=== PATIENT | male | born 1965 | race Caucasian/White ===

== ENCOUNTER 2023-01-21 03:29 | Emergency (ER) | payer OTHER, MEDICAID, SELFPAY ==
[2023-01-21] VITALS (9 sets, daily range): BP systolic 118–211; BP diastolic 59–101; PULSE 60–86; RESP 16–19; TEMP 36.6–37; O2SAT 97–99; BMI 34.4
--- NOTE | 2023-01-21 03:49 | ED.EXTPRO ---
HPI - Extremity Problem General Chief complaint: Extremity Problem,Nontraumatic Stated complaint: pain in feet, blood pressure high Time Seen by Provider: 01/21/23 03:31 Source: patient Mode of arrival: Ambulatory History of Present Illness HPI Narrative: Patient is a 57-year-old male. History of high blood pressure. Was recently in [place] where he states he was ?recuperating? from abdominal surgeries. He has been several months down there. Apparently while he was there he was told that he was diabetic. He is now been back in the local area for several weeks. He is here because last evening he states that he was having pain all over his body specifically in his feet. He also took his blood pressure at home and it was elevated. He denies chest pain or shortness of breath. He has had a stroke in the past. He stated he became very anxious because of his high blood pressure which is what brought him into the emergency department. He has been taking all of his medications as directed. Related Data Allergies Allergy/AdvReac Type Severity Reaction Status Date / Time tramadol Allergy Unknown Verified 01/21/23 03:45 HYDROCODONE Allergy Mild Rash Uncoded 12/01/17 12:31 Review of Systems Review of Systems ROS Unobtainable: All systems reviewed & are unremarkable except as noted in HPI and below Patient History Medical History Stroke Surgical abdomen TBI (traumatic brain injury) Surgical History (Updated 01/21/23 @ 03:45 by Kaela Lindquist RN) H/O heart surgery Social History Smoking Status: Current some day smoker Smoking Status: Current some day smoker tobacco type: cigarettes and cigars alcohol intake frequency: holidays/special occasions only Exam Initial Vital Signs Initial Vital Signs: Vital Signs Pulse Oximetry 98 01/21/23 03:37 Const General: cooperative and No ill appearing HENMT Head: normal to inspection and normocephalic Resp Effort & Inspection: normal respiratory effort Auscultation: clear to auscultation bilaterally Cardio Rate: regular rate Rhythm: regular rhythm GI Inspection: normal to inspection Neuro General: patient alert, patient awake and moves all extremities Extrem General: capillary refill normal Course Orders Ordered: ED Orders 01/21/23 03:49 EKG-12 Lead Stat 01/21/23 03:55 Basic Metabolic Panel Stat Complete Blood Count AUTO DIFF Stat Troponin & CK Cardiac Panel Stat Vital Signs Vital signs: Vital Signs - 8 hr 01/21/23 03:41 01/21/23 03:37 01/21/23 03:38 Temperature 98.6 F Pulse Rate 82 85 Respiratory Rate 18 Blood Pressure 211/101 H Pulse Oximetry 97 98 99 Oxygen Delivery Method Room Air 01/21/23 03:42 01/21/23 03:42 01/21/23 04:00 Temperature Pulse Rate 86 67 Respiratory Rate 16 Blood Pressure 194/99 H Pulse Oximetry 99 Oxygen Delivery Method 01/21/23 04:01 01/21/23 04:01 01/21/23 04:30 Temperature Pulse Rate 69 Respiratory Rate 16 Blood Pressure 129/66 118/59 L Pulse Oximetry Oxygen Delivery Method 01/21/23 04:30 01/21/23 05:07 01/21/23 05:00 Temperature 97.8 F Pulse Rate 63 Respiratory Rate 17 Blood Pressure 128/66 Pulse Oximetry Oxygen Delivery Method 01/21/23 05:00 Temperature Pulse Rate 60 Respiratory Rate 19 Blood Pressure Pulse Oximetry Oxygen Delivery Method MDM - Extremity (Nontraumatic) Lab Data 01/21/23 03:55 01/21/23 03:55 Labs: Lab Results 01/21/23 01/21/23 Range/Units 03:55 03:55 WBC 11.0 (4.5-11.0) X10^3/uL RBC 4.54 (4.5-5.9) X10^6/uL Hgb 14.0 (13.5-17.5) g/dL Hct 41.0 (41-53) % MCV 90.3 (80-100) fL MCH 30.8 (26-34) PG MCHC 34.1 (30-36) % RDW 14.1 (11.6-14.8) % Plt Count 180 (150-400) X10^3/uL Neut % (Auto) 60.5 (50-75) % Lymph % (Auto) 30.0 (25-40) % [place] % (Auto) 7.5 (3-14) % Eos % (Auto) 1.5 L (2-4) % Baso % (Auto) 0.5 (0-2) % Neut # (Auto) 6600 (0214-1233) /uL Lymph # (Auto) 3300 (0199-9765) /uL [place] # (Auto) 800 (0-900) /uL Eos # (Auto) 200 (0-450) /uL Baso # (Auto) 100 (0-100) /uL Sodium 136 L (137-145) mmol/L Potassium 4.0 (3.4-5.1) mmol/L Chloride 103 (98-107) mmol/L Carbon Dioxide 24 (22-32) mmol/L BUN 15 (9-20) mg/dL Creatinine 0.75 (0.66-1.25) mg/dL Estimated GFR > 60 (>60) mL/min BUN/Creatinine Ratio 20.0 (6-22) Glucose 227 H (70-100) mg/dL Calcium 9.5 (8.4-10.2) mg/dL Total Creatine Kinase 97 (55-170) U/L CK-MB (CK-2) TNP CK-MB (CK-2) Rel Index TNP Troponin I < 0.012 (0.01-0.034) ng/mL ECG Data Interpretation: Sinus rhythm Ventricular rate is [address] T wave changes MDM Narrative Medical decision making narrative: Workup here in the emergency department is very reassuring. His blood pressure improved tremendously without specific intervention here in the ER. He states he feels much better. I have a very high suspicion that his presenting symptoms today have an anxiety component to them. Low suspicion for ACS, TIA, heart failure, kidney disease. Will discharge patient home with instructions to continue to take all of his medications as directed and also take his blood pressure at home. He is a follow-up with his primary doctor that beginning an next week and I advised he talk with his primary doctor about potentially changing any medications. He expressed understanding and agreement with plan. Discharge Plan Departure Patient Disposition: Home Clinical Impression: Hypertension Instructions: High Blood Pressure Activity Restrictions/Additional Instructions: Recommend that you continue to take all of your medications as directed and keep all of your scheduled medical appointments. Return to the emergency department for new or worsening symptoms. Stand Alone Forms: Patient Portal/API
[2023-01-21 04:07] LABS: Add Manual Diff / Slide Review NO; Basophils Absolute Auto 100 /uL (0-100); Basophils Percent Auto 0.5 % (0-2); Eosinophils Absolute Auto 200 /uL (0-450); Eosinophils Percent Auto 1.5 % (2-4); Lymphocytes Absolute Auto 3300 /uL (1100-4500); Mean Corpuscular HGB Conc 34.1 % (30-36); Mean Corpuscular Hemoglobin 30.8 PG (26-34); Mean Corpuscular Volume 90.3 fL (80-100); Monocytes Absolute Auto 800 /uL (0-900); Monocytes Percent Auto 7.5 % (3-14); Neutrophils Absolute Auto 6600 /uL (1500-7000); Neutrophils Percent Auto 60.5 % (50-75); Platelet Count 180 X10^3/uL (150-400); Red Blood Cell Count 4.54 X10^6/uL (4.5-5.9); Red Cell Distribution Width 14.1 % (11.6-14.8)
[2023-01-21 04:14] LABS: Blood Urea Nitrogen 15 mg/dL (9-20); Calcium 9.5 mg/dL (8.4-10.2); Carbon Dioxide 24 mmol/L (22-32); Chloride 103 mmol/L (98-107); Creatine Kinase 97 U/L (55-170); Estimated Glomerular Filt Rate > 60 mL/min (>60); Glucose 227 mg/dL (70-100); HEMOLYSIS < 15 (0-50); Sodium 136 mmol/L (137-145)
[2023-01-21 04:26] LABS: Troponin I < 0.012 ng/mL (0.01-0.034)
== END 2023-01-21 05:08 | disposition home or self-care (01) ==
PROVIDERS: Emergency Provider Emergency Medicine
DX: I10 Essential (primary) hypertension (principal); F17.200 Nicotine dependence, unspecified, uncomplicated
CPT/HCPCS: 36415; 80048; 82550; 84484; 85025; 93005; 93010; 99283

== ENCOUNTER → 2023-06-22 10:30 | Outpatient (CLI) | payer OTHER, MEDICAID, SELFPAY ==
[2023-06-22 11:31] LABS: Hematocrit 40.3 % (41-53); Hemoglobin 13.7 g/dL (13.5-17.5); Mean Corpuscular Hemoglobin 30.7 PG (26-34); Mean Corpuscular Volume 90.4 fL (80-100); Platelet Count 218 X10^3/uL (150-400); Red Blood Cell Count 4.46 X10^6/uL (4.5-5.9); White Blood Cell Count 10.1 X10^3/uL (4.5-11.0)
[2023-06-22 11:45] LABS: Alanine Aminotransferase 29 IU/L (<50); Albumin 4.4 g/dL (3.5-5.0); Albumin Globulin Ratio 1.4 (1.0-2.8); Alkaline Phosphatase 70 U/L (38-126); Aspartate Aminotransferase 25 IU/L (17-59); Bilirubin Total 0.5 mg/dL (0.2-1.3); Blood Urea Nitrogen 17 mg/dL (9-20); Calcium 9.8 mg/dL (8.4-10.2); Carbon Dioxide 24 mmol/L (22-32); Chloride 104 mmol/L (98-107); Creatine Kinase 165 U/L (55-170); Estimated Glomerular Filt Rate > 60 mL/min (>60); Globulin 3.1 g/dL (1.7-4.1); Glucose 89 mg/dL (70-100); HEMOLYSIS 39 (0-50); Potassium 4.2 mmol/L (3.4-5.1); Sodium 137 mmol/L (137-145); Total Protein 7.5 g/dL (6.3-8.2)
[2023-06-22 13:35] LABS: Appearance Urine UA CLEAR; Bilirubin Urine UA NEGATIVE (NEGATIVE); Color Urine UA ORANGE; Glucose Urine UA NEGATIVE (Negative); Ketones Urine UA TRACE (NEGATIVE); Leukocyte Esterase Urine UA NEGATIVE (NEGATIVE); Nitrite Urine UA NEGATIVE (Negative); Occult Blood Urine UA NEGATIVE (Negative); Protein Urine UA NEGATIVE (Negative); Specific Gravity Urine UA 1.025 (1.000-1.035)
[2023-06-22 13:42] LABS: Bacteria Urine None Seen; Culture Indicated Urine Cult Not Indicated; Mucus Urine 1+ (Negative); RBC Urine None Seen (0-5/HPF); Squamous Epithelial Cell Urine 1-5 /HPF (0-5/HPF); WBC Urine None Seen (0-5/HPF)
== END ==
PROVIDERS: PCP Family Medicine; Referring Provider Family Medicine; Visit Provider Family Medicine
DX: G72.0 Drug-induced myopathy (principal); I25.10 Atherosclerotic heart disease of native coronary artery without angina pectoris; T46.6X5A Adverse effect of antihyperlipidemic and antiarteriosclerotic drugs, initial encounter; M25.551 Pain in right hip; G89.29 Other chronic pain; Z00.00 Encounter for general adult medical examination without abnormal findings
CPT/HCPCS: 36415; 80053; 81001; 82550; 85027

== ENCOUNTER → 2023-09-01 15:55 | Outpatient (CLI) | payer OTHER, MEDICAID, SELFPAY ==
[2023-09-01 17:25] LABS: Influenza A - CEPHEID Flu A NEGATIVE (NEGATIVE); Influenza B - CEPHEID Flu B NEGATIVE (NEGATIVE); Respiratory Syncytial Virus POSITIVE (Negative)
[2023-09-01 17:27] LABS: COVID-19 CEPHEID 4-PLEX PCR Negative (Negative)
== END ==
PROVIDERS: PCP Family Medicine; Visit Provider Nurse Practitioner Family
DX: R05.1 Acute cough (principal)
CPT/HCPCS: 0241U

== ENCOUNTER → 2023-11-11 11:29 | Outpatient (CLI) | payer OTHER, MEDICAID, SELFPAY ==
[2023-11-11 12:22] LABS: Hematocrit 39.2 % (41-53); Hemoglobin 13.6 g/dL (13.5-17.5); Mean Corpuscular HGB Conc 34.6 % (30-36); Mean Corpuscular Hemoglobin 31.4 PG (26-34); Mean Corpuscular Volume 90.8 fL (80-100); Platelet Count 210 X10^3/uL (150-400); Red Blood Cell Count 4.32 X10^6/uL (4.5-5.9); Red Cell Distribution Width 14.5 % (11.6-14.8); White Blood Cell Count 10.4 X10^3/uL (4.5-11.0)
[2023-11-11 12:30] LABS: Hemoglobin A1C% w Est Avg Glu 5.7 % (4.0-6.0)
[2023-11-11 12:39] LABS: Alanine Aminotransferase 49 IU/L (<50); Albumin Globulin Ratio 1.4 (1.0-2.8); Alkaline Phosphatase 84 U/L (38-126); Aspartate Aminotransferase 35 IU/L (17-59); BUN Creatinine Ratio 17.8 (6-22); Bilirubin Total 0.7 mg/dL (0.2-1.3); Blood Urea Nitrogen 16 mg/dL (9-20); Calcium 9.5 mg/dL (8.4-10.2); Carbon Dioxide 26 mmol/L (22-32); Chloride 107 mmol/L (98-107); Cholesterol 110 mg/dL (140-199); Estimated Glomerular Filt Rate > 60 mL/min (>60); Globulin 2.9 g/dL (1.7-4.1); Glucose 102 mg/dL (80-110); HDL Cholesterol 42 mg/dL (40-60); HEMOLYSIS < 15 (0-50); LDL Cholesterol Calculated 27 mg/dL (<100); Potassium 4.3 mmol/L (3.4-5.1); Sodium 139 mmol/L (137-145); Total Protein 6.9 g/dL (6.3-8.2); Triglycerides 204 mg/dL (35-150)
[2023-11-11 13:08] LABS: Prostate Specific Antigen Scrn 0.958 ng/mL (0.1-4.0)
[2023-11-11 18:46] LABS: HIV 1 & 2 Ab/Ag 4th Gen Combo NEGATIVE (NEGATIVE); Hep C Virus Ab w/Reflex Quant NEGATIVE s/c (NEGATIVE)
[2023-11-11 20:28] LABS: Creatinine Urine Random 529.1 mg/dL; Microalbumi Creatinin Ratio Ur 215.4 ug/mg CR (<30); Microalbumin Urine Random > 114.0 mg/dL (0-1.6)
== END ==
PROVIDERS: PCP Family Medicine; Referring Provider Family Medicine; Visit Provider Family Medicine
DX: I10 Essential (primary) hypertension (principal); I25.10 Atherosclerotic heart disease of native coronary artery without angina pectoris; E66.9 Obesity, unspecified; Z86.73 Personal history of transient ischemic attack (TIA), and cerebral infarction without residual deficits; Z13.9 Encounter for screening, unspecified; Z13.1 Encounter for screening for diabetes mellitus; Z11.59 Encounter for screening for other viral diseases; Z12.5 Encounter for screening for malignant neoplasm of prostate; Z11.4 Encounter for screening for human immunodeficiency virus [HIV]; Z13.220 Encounter for screening for lipoid disorders
CPT/HCPCS: 36415; 80053; 80061; 82043; 82570; 83036; 85027; 86803; 87389; G0103

== ENCOUNTER → 2023-12-28 10:54 | Outpatient (CLI) | payer OTHER, MEDICAID, SELFPAY ==
--- NOTE | 2023-12-28 10:55 | DI.RAD.S_ITS ---
PROCEDURE: XR SHOULDER LT MIN 2V INDICATIONS: Left Shoulder Pain TECHNIQUE: 3 views of the shoulder were acquired. COMPARISON: None. FINDINGS: Bones: No fractures or dislocations. Moderate degenerative changes are present at the acromioclavicular joint. No suspicious bony lesions. Visualized ribs appear intact. Soft tissues: No suspicious soft tissue calcifications. IMPRESSION: No acute bony abnormality. Degenerative change. Dictated by: Radha Lagos M.D. on 12/28/2023 at 15:26 Approved by: Radha Lagos M.D. on 12/28/2023 at 15:27
== END ==
LOC: RAD 10:55
PROVIDERS: PCP Family Medicine; Referring Provider Family Medicine; Visit Provider Family Medicine
DX: M25.512 Pain in left shoulder (principal)
CPT/HCPCS: 73030

== ENCOUNTER → 2024-07-25 13:55 | Outpatient (CLI) | payer OTHER, MEDICAID, SELFPAY ==
--- NOTE | 2024-07-25 13:56 | DI.RAD.S_ITS ---
PROCEDURE: XR HIP W PEL IF DONE LT 2V INDICATIONS: Left hip pain s/p fall 6 weeks ago TECHNIQUE: AP pelvis with lateral view(s) of the left hip(s). COMPARISON: None. FINDINGS: No acute fracture or dislocation. Mild bilateral hip osteoarthritis, greater on the right side, with superimposed cam morphology of the hips. Mild bilateral sacroiliac joint osteoarthritis. The pubic symphysis is preserved. IMPRESSION: No acute fracture or dislocation of the pelvis or left hip. Dictated by: Preston Hawley M.D. on 07/25/2024 at 14:48 Approved by: Preston Hawley M.D. on 07/25/2024 at 14:50
[2024-07-25 15:13] LABS: Appearance Urine UA CLEAR; Bilirubin Urine UA 2+ (NEGATIVE); Color Urine UA YELLOW; Glucose Urine UA NEGATIVE (Negative); Ketones Urine UA NEGATIVE (NEGATIVE); Leukocyte Esterase Urine UA NEGATIVE (NEGATIVE); Nitrite Urine UA NEGATIVE (Negative); Occult Blood Urine UA NEGATIVE (Negative); Protein Urine UA 2+ (Negative); Specific Gravity Urine UA 1.025 (1.000-1.035); pH Urine UA 6.5 (4.5-8.0)
[2024-07-25 15:45] LABS: Ictotest Urine Positive (Negative)
[2024-07-25 15:46] LABS: Bacteria Urine None Seen; Culture Indicated Urine Cult Not Indicated; RBC Urine None Seen (0-5/HPF); Squamous Epithelial Cell Urine 1-5 /HPF (0-5/HPF); Urine Volume 10mL (spun); WBC Urine 1-5/HPF (0-5/HPF)
== END ==
PROVIDERS: PCP Family Medicine; Referring Provider Family Medicine; Visit Provider Family Medicine
DX: M16.0 Bilateral primary osteoarthritis of hip (principal); M25.552 Pain in left hip; R32 Unspecified urinary incontinence
CPT/HCPCS: 73502; 81001

== ENCOUNTER → 2024-09-22 12:32 | Outpatient (CLI) | payer OTHER, SELFPAY ==
[2024-09-22 13:06] LABS: Add Manual Diff / Slide Review NO; Basophils Absolute Auto 100 /uL (0-100); Basophils Percent Auto 0.8 % (0-2); Eosinophils Absolute Auto 200 /uL (0-450); Eosinophils Percent Auto 1.6 % (2-4); Hematocrit 42.5 % (41-53); Hemoglobin 14.2 g/dL (13.5-17.5); Lymphocytes Absolute Auto 3900 /uL (1100-4500); Lymphocytes Percent Auto 35.2 % (25-40); Mean Corpuscular HGB Conc 33.4 % (30-36); Mean Corpuscular Hemoglobin 30.7 PG (26-34); Mean Corpuscular Volume 91.8 fL (80-100); Monocytes Absolute Auto 800 /uL (0-900); Monocytes Percent Auto 7.6 % (3-14); Neutrophils Absolute Auto 6100 /uL (1500-7000); Neutrophils Percent Auto 54.8 % (50-75); Platelet Count 232 X10^3/uL (150-400); Red Blood Cell Count 4.63 X10^6/uL (4.5-5.9); Red Cell Distribution Width 13.8 % (11.6-14.8); White Blood Cell Count 11.1 X10^3/uL (4.5-11.0)
[2024-09-22 13:24] LABS: Alanine Aminotransferase 33 IU/L (<50); Albumin 4.5 g/dL (3.5-5.0); Alkaline Phosphatase 75 U/L (38-126); Aspartate Aminotransferase 33 IU/L (17-59); BUN Creatinine Ratio 17.1 (6-22); Bilirubin Total 0.6 mg/dL (0.2-1.3); Blood Urea Nitrogen 14 mg/dL (9-20); Calcium 9.7 mg/dL (8.4-10.2); Carbon Dioxide 22 mmol/L (22-32); Chloride 106 mmol/L (98-107); Estimated Glomerular Filt Rate > 60 mL/min (>60); Globulin 2.7 g/dL (1.7-4.1); Glucose 104 mg/dL (80-110); HEMOLYSIS < 15 (0-50); Potassium 4.5 mmol/L (3.4-5.1); Sodium 137 mmol/L (137-145); Total Protein 7.2 g/dL (6.3-8.2)
[2024-09-22 13:25] LABS: Albumin Globulin Ratio 1.7 (1.0-2.8); Cholesterol 131 mg/dL (140-199); HDL Cholesterol 45 mg/dL (40-60); LDL Cholesterol Calculated 53 mg/dL (<100); Triglycerides 167 mg/dL (35-150)
[2024-09-22 13:45] LABS: Appearance Urine UA CLEAR; Bilirubin Urine UA NEGATIVE (NEGATIVE); Color Urine UA YELLOW; Glucose Urine UA NEGATIVE (Negative); Ketones Urine UA NEGATIVE (NEGATIVE); Leukocyte Esterase Urine UA NEGATIVE (NEGATIVE); Nitrite Urine UA NEGATIVE (Negative); Occult Blood Urine UA NEGATIVE (Negative); Protein Urine UA 2+ (Negative); Specific Gravity Urine UA 1.015 (1.000-1.035)
[2024-09-22 14:01] LABS: Bacteria Urine None Seen; Culture Indicated Urine Cult Not Indicated; Hyaline Casts Urine 0-1/LPF; RBC Urine 0-1/HPF (0-5/HPF); Squamous Epithelial Cell Urine 1-5 /HPF (0-5/HPF); Urine Volume 10mL (spun); WBC Urine 0-1/HPF (0-5/HPF)
[2024-09-22 14:58] LABS: Creatinine Urine Random 161.56 mg/dL
[2024-09-22 15:49] LABS: Microalbumin Urine Random 60.6 mg/dL (0-1.6)
[2024-09-24 08:38] LABS: Fructosamine 206 umol/L (0-285)
== END ==
LOC: LAB 12:34
PROVIDERS: PCP Family Medicine; Referring Provider Family Medicine; Visit Provider Family Medicine
DX: Z01.818 Encounter for other preprocedural examination (principal); M25.551 Pain in right hip; G89.29 Other chronic pain; I50.9 Heart failure, unspecified; I25.10 Atherosclerotic heart disease of native coronary artery without angina pectoris; E78.5 Hyperlipidemia, unspecified; I11.0 Hypertensive heart disease with heart failure
CPT/HCPCS: 36415; 80053; 80061; 81001; 82043; 82570; 82985; 85025; 85610; 85611; 85730; 85732

== ENCOUNTER → 2024-12-19 12:15 | Outpatient (CLI) | payer OTHER, SELFPAY ==
[2024-12-19 14:01] LABS: Hemoglobin A1C% w Est Avg Glu 5.4 % (4.0-6.0)
[2024-12-19 14:10] LABS: Alanine Aminotransferase 27 IU/L (<50); Albumin 4.6 g/dL (3.5-5.0); Albumin Globulin Ratio 1.6 (1.0-2.8); Alkaline Phosphatase 78 U/L (38-126); Aspartate Aminotransferase 29 IU/L (17-59); Bilirubin Total 0.6 mg/dL (0.2-1.3); Blood Urea Nitrogen 18 mg/dL (9-20); Calcium 9.8 mg/dL (8.4-10.2); Carbon Dioxide 23 mmol/L (22-32); Chloride 104 mmol/L (98-107); Estimated Glomerular Filt Rate > 60 mL/min (>60); Globulin 2.9 g/dL (1.7-4.1); Glucose 140 mg/dL (70-99); HEMOLYSIS < 15 (0-50); Potassium 4.2 mmol/L (3.4-5.1); Sodium 139 mmol/L (137-145); Total Protein 7.5 g/dL (6.3-8.2)
== END ==
PROVIDERS: PCP Family Medicine; Referring Provider Family Medicine; Visit Provider Family Medicine
DX: R73.03 Prediabetes (principal); Z79.899 Other long term (current) drug therapy
CPT/HCPCS: 36415; 80053; 83036

== ENCOUNTER → 2025-01-17 08:26 | Outpatient (CLI) | payer OTHER, SELFPAY ==
--- NOTE | 2025-01-17 08:27 | DI.CT.S_ITS ---
PROCEDURE: CT IVP A/P W/WO INDICATIONS: MICROSCOPIC HEMATURIA TECHNIQUE: Optional 5 mm thick noncontrast images acquired from the diaphragm to the symphysis pubis. After the administration of intravenous contrast, 5 mm thick images acquired from the diaphragm to the symphysis pubis after a 10-minute delay. 2 mm thick coronal and sagittal reformats were then performed of the kidneys and ureters. For radiation dose reduction, the following was used: automated exposure control, adjustment of mA and/or kV according to patient size. COMPARISON: None. FINDINGS: Image quality: Portions of the lower pelvis are suboptimally evaluated secondary to metallic streak artifact from hip arthroplasty. Kidneys and Ureters: Both kidneys are normal in size, without hydronephrosis or nephrolithiasis. No perinephric fat stranding. There is normal bilateral renal enhancement. Bilateral simple renal cysts. Renal calyces appear normal in morphology when filled with contrast. Opacified portions of both ureters demonstrate normal caliber Bladder: Bladder wall thickness is normal. No calcified bladder stones. OTHER: Lower chest: Unremarkable. Liver: No solid mass. Gallbladder: Removed. Biliary ducts: No biliary dilation. Pancreas: No ductal dilation. Spleen: Size is within normal limits. Adrenal Glands: Bilateral adrenal nodules the largest the left measuring 2.3 cm. Visible component is present on the left. Hounsfield units on right measure -6 and -79. Stomach and Bowel: Normal colonic caliber, without significant wall thickening. Colonic diverticula inflammatory change. Peritoneum: No abnormal intraperitoneal fluid. No free air. Ventral Wall: No hernia. Abdominal Nodes: No retroperitoneal or mesenteric adenopathy by size criteria. Vessels: Aorta and inferior vena cava are normal in size. PELVIS: Pelvic Organs: Unremarkable. Pelvic Nodes: No enlarged lymph nodes. Miscellaneous: Minimal fat containing inguinal hernias are seen. Bones: No aggressive osseous abnormality. IMPRESSION: No nephrolithiasis or filling defects within the opacified renal collecting system or ureters. Bilateral adrenal nodules with Hounsfield units consistent with benign adenoma etiology. Dictated by: Manjula Pena M.D. on 01/17/2025 at 11:51 Approved by: Manjula Pena M.D. on 01/17/2025 at 11:57
== END ==
PROVIDERS: Family Provider Family Medicine; PCP Family Medicine; Referring Provider Physician Assistant Medical; Visit Provider Physician Assistant Medical
DX: R31.29 Other microscopic hematuria (principal); N28.1 Cyst of kidney, acquired; Z96.649 Presence of unspecified artificial hip joint
CPT/HCPCS: 74178; Q9967

== ENCOUNTER → 2025-05-08 13:49 | Outpatient (CLI) | payer OTHER, SELFPAY ==
[2025-05-08 14:23] LABS: Add Manual Diff / Slide Review NO; Hematocrit 36.3 % (41-53); Hemoglobin 12.4 g/dL (13.5-17.5); Lymphocytes Absolute Auto 3900 /uL (1100-4500); Mean Corpuscular HGB Conc 34.2 % (30-36); Mean Corpuscular Hemoglobin 29.3 PG (26-34); Mean Corpuscular Volume 85.6 fL (80-100); Platelet Count 200 X10^3/uL (150-400)
[2025-05-08 15:00] LABS: Alanine Aminotransferase 21 IU/L (<50); Albumin 4.2 g/dL (3.5-5.0); Albumin Globulin Ratio 1.6 (1.0-2.8); Alkaline Phosphatase 79 U/L (38-126); Blood Urea Nitrogen 18 mg/dL (9-20); Calcium 9.6 mg/dL (8.4-10.2); Carbon Dioxide 25 mmol/L (22-32); Chloride 101 mmol/L (98-107); Cholesterol 98 mg/dL (140-199); Estimated Glomerular Filt Rate > 60 mL/min (>60); Globulin 2.6 g/dL (1.7-4.1); Glucose 115 mg/dL (70-99); HDL Cholesterol 42 mg/dL (40-60); HEMOLYSIS < 15 (0-50); Potassium 4.5 mmol/L (3.4-5.1); Sodium 135 mmol/L (137-145); Total Protein 6.8 g/dL (6.3-8.2); Triglycerides 92 mg/dL (35-150)
[2025-05-08 15:45] LABS: Microalbumi Creatinin Ratio Ur 27.0 ug/mg CR (<30)
== END ==
PROVIDERS: Family Provider Family Medicine; PCP Family Medicine; Referring Provider Family Medicine; Visit Provider Family Medicine
DX: R73.03 Prediabetes (principal); R80.9 Proteinuria, unspecified; I50.9 Heart failure, unspecified; I25.10 Atherosclerotic heart disease of native coronary artery without angina pectoris; E78.5 Hyperlipidemia, unspecified; Z12.5 Encounter for screening for malignant neoplasm of prostate
CPT/HCPCS: 36415; 80053; 80061; 82043; 82570; 85025; G0103

== ENCOUNTER → 2025-07-09 17:04 | Outpatient (CLI) | payer OTHER, SELFPAY ==
--- NOTE | 2025-07-09 17:06 | DI.MRI.S_ITS ---
PROCEDURE: MR KNEE RT WO CON INDICATIONS: r/o internal derangement TECHNIQUE: Noncontrast sagittal PD fast spin echo and T2 fast spin echo with fat saturation, sagittal 3-D FLASH with fat saturation; coronal T1 spin echo and PD fast spin echo with fat saturation, and axial PD fast spin echo with fat saturation through the knee. COMPARISON: None. FINDINGS: Quality: Adequate Menisci: Medial meniscus: Intact Lateral meniscus: Intact Cruciate ligaments: Anterior cruciate ligament: Intact Posterior cruciate ligament: Intact Collateral ligaments: Medial collateral ligament: Intact Lateral collateral ligament complex: Partial tear of proximal fibular collateral ligament. Iliotibial band, biceps femoris are unremarkable. Partial tearing of popliteus tendon at the insertion. Extensor mechanism: Quadriceps tendon: Intact Patellar tendon: Intact Retinaculum: Intact Fat pads: Unremarkable Cartilage: Full-thickness fissuring deep partial-thickness delaminating cartilage defect of the posterior weight-bearing portion of the medial femoral condyle. Full- thickness fissuring and greater than 50% thinning of the lateral patellar cartilage. Bones: No fracture. Fluid spaces: Joint: Physiologic fluid. Popliteal cyst: None Other: None IMPRESSION: 1. Severe osteoarthritis. 2. Partial tear fibular collateral ligament. 3. Partial tear popliteus tendon insertion. Dictated by: Levi Iraheta M.D. on 07/10/2025 at 13:15 Approved by: Levi Iraheta M.D. on 07/10/2025 at 13:21
== END ==
LOC: MRI 17:05
PROVIDERS: Family Provider Family Medicine; PCP Family Medicine; Referring Provider Physician Assistant; Visit Provider Physician Assistant
DX: S86.111A Strain of other muscle(s) and tendon(s) of posterior muscle group at lower leg level, right leg, initial encounter (principal); S83.421A Sprain of lateral collateral ligament of right knee, initial encounter; M17.11 Unilateral primary osteoarthritis, right knee; M25.561 Pain in right knee
CPT/HCPCS: 73721

== ENCOUNTER → 2025-08-07 09:49 | Outpatient (CLI) | payer OTHER, SELFPAY ==
[2025-08-07 11:40] LABS: Hematocrit 38.5 % (41-53); Hemoglobin 13.0 g/dL (13.5-17.5); Mean Corpuscular HGB Conc 33.8 % (30-36); Mean Corpuscular Hemoglobin 29.2 PG (26-34); Mean Corpuscular Volume 86.3 fL (80-100); Platelet Count 212 X10^3/uL (150-400)
[2025-08-07 11:50] LABS: HEMOLYSIS < 15 (0-50); Iron 105 ug/dL (49-181)
[2025-08-07 11:57] LABS: Hemoglobin A1C% w Est Avg Glu 6.0 % (4.0-6.0)
[2025-08-07 12:06] LABS: Percent Iron Saturation 26 % (20-50); Total Iron Binding Capacity 410 ug/dL (261-462); Transferrin 324 mg/dL (206-381)
[2025-08-07 12:21] LABS: Ferritin 15 ng/mL (18-464)
== END ==
PROVIDERS: Family Provider Family Medicine; PCP Family Medicine; Referring Provider Family Medicine; Visit Provider Family Medicine
DX: D64.9 Anemia, unspecified (principal)
CPT/HCPCS: 36415; 82728; 83036; 83540; 83550; 85027